=== PATIENT | female | born 1935 | race Caucasian/White ===

== ENCOUNTER 2020-07-16 10:11 | Inpatient (IN) | payer MEDICARE, OTHER ==
--- NOTE | 2020-07-14 19:00 | NUR ---
PATIENT ALERT BUT FORGETFUL, NO SOB NO CHEST PAIN. PATIENT IS HAVING ANXIETY, WORRIES ABOUT OH CATH NOT DRAINING, ETC. REORIENT PATIENT THAT OH CATH PATENT, AND ENCOURAGED TO TRY TO RELAX. PATIENT ALSO PULLED OUT IV LINE. WILL CONT TO MONITOR.
[~2020-07-16] VITALS: Ht 162.6 cm; Wt 68.0 kg
[2020-07-16 11:07] LABS: *BILIRUBIN,URIN NEGATIVE (NEGATIVE); *CLARITY,URINE CLEAR (CLEAR); *COLOR,URINE YELLOW (YELLOW); *KETONES,URINE NEGATIVE (NEGATIVE); *UROBILINOGEN,URINE 0.2 E.U./dl (NORMAL); LEUKOCYTE ESTERASE ,URINE NEGATIVE (NEGATIVE); NITRITE, URINE NEGATIVE (NEGATIVE); UGLUCOSE NEGATIVE (NEGATIVE)
[2020-07-16 11:21] LABS: BILIRUBIN,DIRECT 0.5 mg/dL (0.0-0.2); BILIRUBIN,TOTAL 3.8 mg/dL (0.2-1.0); CREATININE 1.3 mg/dL (0.6-1.3); TOTAL PROTEIN, SERUM 6.1 g/dL (6.4-8.2)
[2020-07-16 11:36] LABS: *BLOOD, URINE TRACE (NEGATIVE)
[2020-07-16 11:42] LABS: BASOPHILS % (AUTO) 0.5 % (0.0-2.0); EOSINOPHILS # (AUTO) 0.1 K/uL (0.0-0.7); EOSINOPHILS % (AUTO) 0.7 % (0.0-7.0); HEMATOCRIT 37.4 % (31.2-41.9); HEMOGLOBIN 13.8 g/dL (10.9-14.3); LYMPHOCYTES # (AUTO) 0.9 K/uL (20.0-40.0); LYMPHOCYTES % (AUTO) 10.3 % (20.5-51.5); MEAN CORPUSCULAR HEMOGLOBIN 30.4 uug (24.7-32.8); MEAN CORPUSCULAR HGB CONC 37 g/dL (32.3-35.6); MEAN CORPUSCULAR VOLUME 82.5 fL (75.5-95.3); MONOCYTES # (AUTO) 0.6 K/uL (2.0-10.0); MONOCYTES % (AUTO) 6.9 % (0.0-11.0); NEUTROPHILS # (AUTO) 6.8 K/uL (1.8-8.9); NEUTROPHILS % (AUTO) 81.6 % (38.5-71.5); PLATELET COUNT (AUTO) 286 K/uL (179-408); POTASSIUM 2.8 mmol/L (3.5-5.1); RED BLOOD CELL COUNT(AUTO) 4.54 MIL/uL (3.63-4.92); WHITE BLOOD COUNT (AUTO) 8.3 K/uL (3.8-11.8)
[2020-07-16] MEDS ORDERED: IV NORMAL SALINE 1000 ML BAG IV ONE (11:45)
--- NOTE | 2020-07-16 12:28 | NUR ---
Luz Marina Murphy at the bedside for admission.
[2020-07-16] MEDS ORDERED: POTASSIUM CHLORIDE 50 ML IV SCH (12:30)
[2020-07-16] MEDS ORDERED: POTASSIUM CHLORIDE 20 MEQ TAB.PRT.SR PO ONE (12:30)
[2020-07-16] MEDS ORDERED: ASPIRIN 325 MG TABLET PO ONE (12:30)
--- NOTE | 2020-07-16 12:32 | NUR ---
PT UNABLE TO REMEMBER MEDICATIONS AND DOSAGES.
[2020-07-16] MEDS ORDERED: ASPIRIN 325 MG TABLET ONE (12:34)
[2020-07-16] MEDS ORDERED: POTASSIUM CHLORIDE 20 MEQ TAB.PRT.SR ONE (12:42)
[2020-07-16] MEDS ORDERED: POTASSIUM CHLORIDE 50 ML ONE (12:42)
[2020-07-16] MEDS ORDERED: MAGNESIUM HYDROXIDE 30 ML LIQUID UDC PO PRN (13:30)
[2020-07-16] MEDS ORDERED: PANT40TA49 PO (13:34)
[2020-07-16] MEDS ORDERED: AMLO2.5T4 PO (13:34)
[2020-07-16] MEDS ORDERED: LEVO50TA8 PO (13:34)
[2020-07-16] MEDS ORDERED: ATOR20TA PO (13:34)
[2020-07-16] MEDS ORDERED: METO50TA16 PO (13:34)
[2020-07-16] MEDS: ENOXAPARIN SODIUM 30 MG/0.3 ML DISP.SYRIN SQ SCH (14:33)
[2020-07-16] MEDS ORDERED: ONDANSETRON 4 MG/2 ML VIAL ONE (14:33)
[2020-07-16] MEDS ORDERED: ENOXAPARIN SODIUM 30 MG/0.3 ML DISP.SYRIN ONE (14:33)
[2020-07-16] MEDS: ONDANSETRON 4 MG/2 ML VIAL IV PRN (14:36)
--- NOTE | 2020-07-16 15:24 | NUR ---
Patient is resting comfortably in bed with eyes closed, NAD noted.
[2020-07-16 15:50] LABS: BACTERIA,URINE NONE SEEN /HPF (NONE SEEN); SQUAMOUS EPITHELIAL CELL,UR FEW /HPF (NONE SEEN); WBC,URINE 0-3 /HPF (0-3)
[2020-07-16] MEDS ORDERED: METO-357 PO (16:32)
[2020-07-16] MEDS ORDERED: KETO15CR2 TP (16:32)
[2020-07-16] MEDS: ACETAMINOPHEN 325 MG TABLET PO PRN (16:50)
[2020-07-16] MEDS ORDERED: ACETAMINOPHEN 325 MG TABLET ONE (16:51)
[2020-07-16 17:53] LABS: CREATININE 1.2 mg/dL (0.6-1.3); POTASSIUM 3.1 mmol/L (3.5-5.1)
--- NOTE | 2020-07-16 18:28 | NUR ---
Reposition for comfort, denies nausea.
--- NOTE | 2020-07-16 19:57 | NUR ---
PT AWAITING FOR MED SURG BED. NO DISTRESS NOTED
[2020-07-16] MEDS ORDERED: IV NS 1000 ML 1,000 ML IV ONE (20:00)
--- NOTE | 2020-07-16 20:30 | NUR ---
SBAR REPORT TO NINOSKA VOGEL. PT RECEIVING 1 L 0.9 NS.
--- NOTE | 2020-07-16 21:00 | NUR ---
RECEIVED PATIENT, IN NO ACUTE DISTRESS. ALERT AND VERBALLY RESPONSIVE. CAN MAKE NEEDS KNOWN. NO COMPLAINTS OF PAIN. ORIENTED PATIENT TO ROOM, BED, AND UNIT.
[2020-07-16 21:20] VITALS: BP 142/56
--- NOTE | 2020-07-16 22:30 | NUR ---
BODY CHECK DONE, PATIENT'S SKIN INTACT.
[2020-07-16 23:56] VITALS: BP 147/60
[2020-07-17 04:05] VITALS: BP 171/83
--- NOTE | 2020-07-17 04:30 | NUR ---
PATIENT OBSERVED TO BE ANXIOUS. VERBALIZED SHE CAN'T BREATH. BUT UPON OBSERVATION, PATIENT'S RESPIRATIONS ARE EVEN AND UNLABORED WITH 19 BREATHS PER MINUTE, O2 SATURATION IS 97% ON ROOM AIR. PATIENT IS ON TELEMETRY AND READING IS SINUS RHYTHM. BP WAS ELEVATED AT 171/83. PROVIDED PATIENT REASSURANCE, DIM AND QUIET ENVIRONMENT.
[2020-07-17 04:50] VITALS: BP 156/79
--- NOTE | 2020-07-17 04:50 | NUR ---
RECHECKED PATIENT'S BLOOD PRESSURE AND IS 156/79, HEART RATE 98. PATIENT IS LESS ANXIOUS AND DOZING INTERMITTENTLY.
[2020-07-17] MEDS: PANTOPRAZOLE SODIUM 40 MG TABLET.DR PO SCH (06:04)
[2020-07-17 06:31] LABS: BASOPHILS % (AUTO) 0.4 % (0.0-2.0); EOSINOPHILS # (AUTO) 0.1 K/uL (0.0-0.7); EOSINOPHILS % (AUTO) 1.1 % (0.0-7.0); HEMATOCRIT 35.1 % (31.2-41.9); LYMPHOCYTES # (AUTO) 0.6 K/uL (20.0-40.0); LYMPHOCYTES % (AUTO) 7.8 % (20.5-51.5); MEAN CORPUSCULAR HEMOGLOBIN 30.8 uug (24.7-32.8); MEAN CORPUSCULAR HGB CONC 37 g/dL (32.3-35.6); MEAN CORPUSCULAR VOLUME 83.2 fL (75.5-95.3); MONOCYTES # (AUTO) 0.6 K/uL (2.0-10.0); MONOCYTES % (AUTO) 7.6 % (0.0-11.0); NEUTROPHILS # (AUTO) 6.3 K/uL (1.8-8.9); NEUTROPHILS % (AUTO) 83.1 % (38.5-71.5); PLATELET COUNT (AUTO) 254 K/uL (179-408); RED BLOOD CELL COUNT(AUTO) 4.23 MIL/uL (3.63-4.92); WHITE BLOOD COUNT (AUTO) 7.5 K/uL (3.8-11.8)
[2020-07-17 06:52] LABS: BILIRUBIN,TOTAL 2.5 mg/dL (0.2-1.0); CREATININE 1.2 mg/dL (0.6-1.3); MAGNESIUM 1.9 mg/dL (1.8-2.4); PHOSPHOROUS 2.5 mg/dL (2.5-4.9); TOTAL PROTEIN, SERUM 5.5 g/dL (6.4-8.2)
[2020-07-17 07:27] LABS: POTASSIUM 2.8 mmol/L (3.5-5.1)
[2020-07-17] MEDS: ACETAMINOPHEN 325 MG TABLET PO PRN (08:37)
[2020-07-17] MEDS: LEVOTHYROXINE SODIUM 50 MCG TABLET PO SCH (08:39)
[2020-07-17] MEDS: METOPROLOL SUCCINATE XL 50 MG TAB.SR.24H PO SCH (08:40)
[2020-07-17] MEDS ORDERED: PANTOPRAZOLE SODIUM 40 MG TABLET.DR PO SCH (09:00)
[2020-07-17] MEDS ORDERED: AMLODIPINE 2.5 MG TABLET PO SCH (09:00)
[2020-07-17] MEDS ORDERED: POTASSIUM CHLORIDE 20 MEQ TAB.PRT.SR PO ONE (09:45)
[2020-07-17] MEDS: ENOXAPARIN SODIUM 30 MG/0.3 ML DISP.SYRIN SQ SCH (09:57)
[2020-07-17 11:58] VITALS: BP 170/76
[2020-07-17] MEDS: MIRALAX 17 GM POWD.PACK PO SCH (12:13)
--- NOTE | 2020-07-17 14:25 | NUR ---
DR POST MADE AWARE ABOUT THE CONSULT
[2020-07-17 16:00] VITALS: BP 134/60
[2020-07-17] MEDS: POTASSIUM CHLORIDE 50 ML IV SCH ×2 (17:51→19:28)
--- NOTE | 2020-07-17 18:28 | NUR ---
Patient needs new intravenous site as she removed own intravenous site. Patient refuses linen change, meal tray bean picker at this time. Barrie Ayala RN
[2020-07-17] MEDS: IV NS 1000 ML 1,000 ML IV PRN (19:00)
--- NOTE | 2020-07-17 19:30 | NUR ---
Handoff with JASPREET Crawford. Barrie Ayala RN
[2020-07-17 20:00] VITALS: BP 116/80
[2020-07-17] MEDS: ATORVASTATIN 20 MG TABLET PO SCH (21:20)
[2020-07-17] MEDS: MIRTAZAPINE 15 MG TABLET PO SCH (21:21)
[2020-07-17] MEDS: CLONAZEPAM 0.5 MG TABLET PO SCH (21:41)
--- NOTE | 2020-07-17 21:48 | NUR ---
PATIENT SEEN BY DR POST DUE TO SEVERE ANXIETY, AND WANTING TO HURT HERSELF. HAS NEW ORDER.
--- NOTE | 2020-07-17 21:55 | NUR ---
PATIENT IS HARD STICK, AND MULTIPLE MEDICATIONS NEEDS TO BE GIVEN. [facility] TECHNICIAN NOTIFY WITH ORDER MIDLINE INSERTION.
[2020-07-18] VITALS: BP 197/91
[2020-07-18] MEDS: IV NS 1000 ML 1,000 ML IV PRN ×3 (02:46→17:19)
--- NOTE | 2020-07-18 02:47 | NUR ---
NS IV FLUID BAR CODE UN SCANNABLE, ENTER MANUALLY.
[2020-07-18 04:00] VITALS: BP 192/82
[2020-07-18] MEDS: ACETAMINOPHEN 325 MG TABLET PO PRN (04:10)
--- NOTE | 2020-07-18 04:27 | NUR ---
PATIENT HAS ELEVATED BP OF 197/91 HR 80, 192/82 HR 86, NOTIFY [facility] FREIGHT RATE CLERK WITH ORDER CLONIDINE 0.1MG PO Q8 HRS PRN FOR SBP>160.
[2020-07-18] MEDS: PANTOPRAZOLE SODIUM 40 MG TABLET.DR PO SCH (06:00)
[2020-07-18] MEDS: CLONIDINE HCL 0.1 MG TABLET PO PRN (06:00)
[2020-07-18 07:47] LABS: CREATININE 0.9 mg/dL (0.6-1.3); MAGNESIUM 2.1 mg/dL (1.8-2.4); PHOSPHOROUS 2.1 mg/dL (2.5-4.9); POTASSIUM 3.3 mmol/L (3.5-5.1); URIC ACID 3.3 mg/dL (2.6-6.0)
[2020-07-18 07:52] LABS: THYROID STIMULATING HORMONE 1.45 mIU/mL (0.358-3.740)
[2020-07-18 08:00] VITALS: BP 156/63
[2020-07-18] MEDS ORDERED: POTASSIUM CHLORIDE 20 MEQ POWDER PACKET PO ONE (08:15)
[2020-07-18 08:18] LABS: BASOPHILS # (AUTO) 0.1 K/uL (0.0-8.0); BASOPHILS % (AUTO) 0.6 % (0.0-2.0); EOSINOPHILS # (AUTO) 0.2 K/uL (0.0-0.7); EOSINOPHILS % (AUTO) 1.5 % (0.0-7.0); HEMATOCRIT 37.8 % (31.2-41.9); HEMOGLOBIN 13.4 g/dL (10.9-14.3); LYMPHOCYTES # (AUTO) 1.1 K/uL (20.0-40.0); LYMPHOCYTES % (AUTO) 7.8 % (20.5-51.5); MEAN CORPUSCULAR HEMOGLOBIN 30.5 uug (24.7-32.8); MEAN CORPUSCULAR HGB CONC 36 g/dL (32.3-35.6); MEAN CORPUSCULAR VOLUME 85.9 fL (75.5-95.3); MONOCYTES % (AUTO) 7.1 % (0.0-11.0); PLATELET COUNT (AUTO) 293 K/uL (179-408); WHITE BLOOD COUNT (AUTO) 14.5 K/uL (3.8-11.8)
[2020-07-18] MEDS: AMLODIPINE 2.5 MG TABLET PO SCH (08:36)
[2020-07-18] MEDS: CLONAZEPAM 0.5 MG TABLET PO SCH ×2 (08:36→16:16)
[2020-07-18] MEDS: MIRALAX 17 GM POWD.PACK PO SCH (08:36)
[2020-07-18] MEDS: METOPROLOL SUCCINATE XL 50 MG TAB.SR.24H PO SCH (08:36)
[2020-07-18] MEDS: LEVOTHYROXINE SODIUM 50 MCG TABLET PO SCH (08:36)
[2020-07-18] MEDS: ENOXAPARIN SODIUM 30 MG/0.3 ML DISP.SYRIN SQ SCH (08:37)
[2020-07-18] MEDS ORDERED: CLONAZEPAM 0.5 MG TABLET PO SCH (09:00)
[2020-07-18] MEDS ORDERED: POTASSIUM PHOSPHATE MM 7.5 MMOL in IV NORMAL SALINE 97.5 ML IV ONE (10:00)
[2020-07-18 11:00] VITALS: BP 152/63
[2020-07-18] MEDS: CLONIDINE-TTS 1 PATCH TD SCH (12:46)
[2020-07-18 15:21] VITALS: BP 136/66
--- NOTE | 2020-07-18 20:00 | NUR ---
Received pt resting in bed. Axox3, no acute distress noted. No s/s of SOB, RA saturating @ 95-96%. Denies any pain at the moment. ALEX midline intact running 75cc/hr NS. Reese draining yellow, no sediments noted. Safety measures in place. Bed alarm on. Will continue with plan of care.
[2020-07-18 20:30] VITALS: BP 158/74
[2020-07-18] MEDS: ATORVASTATIN 20 MG TABLET PO SCH (21:54)
[2020-07-18] MEDS: MIRTAZAPINE 15 MG TABLET PO SCH (21:54)
[2020-07-18] MEDS: ONDANSETRON 4 MG/2 ML VIAL IV PRN (23:20)
--- NOTE | 2020-07-18 23:30 | NUR ---
All due medication administered and tolerated well, compliant. Noted clear emesis on the floor twice. Pt stated feeling nauseous, administered zofran. Will monitor for effectiveness.
[2020-07-19] MEDS: PANTOPRAZOLE SODIUM 40 MG TABLET.DR PO SCH (06:02)
[2020-07-19] MEDS: IV NS 1000 ML 1,000 ML IV PRN ×2 (06:49→21:37)
[2020-07-19 07:14] LABS: BASOPHILS # (AUTO) 0.1 K/uL (0.0-8.0); BASOPHILS % (AUTO) 0.7 % (0.0-2.0); EOSINOPHILS # (AUTO) 0.1 K/uL (0.0-0.7); EOSINOPHILS % (AUTO) 1.7 % (0.0-7.0); HEMATOCRIT 34.5 % (31.2-41.9); HEMOGLOBIN 12.3 g/dL (10.9-14.3); LYMPHOCYTES # (AUTO) 1.1 K/uL (20.0-40.0); LYMPHOCYTES % (AUTO) 12.7 % (20.5-51.5); MEAN CORPUSCULAR HEMOGLOBIN 31.1 uug (24.7-32.8); MEAN CORPUSCULAR HGB CONC 36 g/dL (32.3-35.6); MEAN CORPUSCULAR VOLUME 87.1 fL (75.5-95.3); MONOCYTES # (AUTO) 0.6 K/uL (2.0-10.0); MONOCYTES % (AUTO) 6.5 % (0.0-11.0); NEUTROPHILS # (AUTO) 6.8 K/uL (1.8-8.9); NEUTROPHILS % (AUTO) 78.4 % (38.5-71.5); PLATELET COUNT (AUTO) 266 K/uL (179-408); RED BLOOD CELL COUNT(AUTO) 3.96 MIL/uL (3.63-4.92); WHITE BLOOD COUNT (AUTO) 8.7 K/uL (3.8-11.8)
[2020-07-19 07:22] LABS: BILIRUBIN,TOTAL 1.2 mg/dL (0.2-1.0); MAGNESIUM 1.9 mg/dL (1.8-2.4); PHOSPHOROUS 2.8 mg/dL (2.5-4.9); POTASSIUM 3.6 mmol/L (3.5-5.1); TOTAL PROTEIN, SERUM 5.6 g/dL (6.4-8.2)
[2020-07-19] MEDS: MIRALAX 17 GM POWD.PACK PO SCH (08:14)
[2020-07-19] MEDS: ENOXAPARIN SODIUM 30 MG/0.3 ML DISP.SYRIN SQ SCH (08:15)
[2020-07-19] MEDS: METOPROLOL SUCCINATE XL 50 MG TAB.SR.24H PO SCH ×2 (08:15→21:37)
[2020-07-19] MEDS: AMLODIPINE 2.5 MG TABLET PO SCH (08:15)
[2020-07-19] MEDS: CLONAZEPAM 0.5 MG TABLET PO SCH ×2 (08:15→16:48)
[2020-07-19] MEDS: LEVOTHYROXINE SODIUM 50 MCG TABLET PO SCH (08:15)
[2020-07-19 11:00] VITALS: BP 147/69
[2020-07-19 15:26] VITALS: BP 115/71
[2020-07-19 20:26] VITALS: BP 148/64
[2020-07-19] MEDS: ATORVASTATIN 20 MG TABLET PO SCH (21:36)
[2020-07-19] MEDS: MIRTAZAPINE 15 MG TABLET PO SCH (21:37)
--- NOTE | 2020-07-19 22:00 | NUR ---
pt is confused, does not understand why she is in the hospital. Expressed she does not want medical help. No acute distress noted. vss, No s/s of SOB. Denies any pain at the moment. ALEX midline intact running 75cc/hr NS. Reese draining yellow. All due medication administered and tolerated well. Snacks provided, all needs attended too promptly. Safety measures in place. Bed alarm on. Will continue with plan of care.
[2020-07-20 04:30] VITALS: BP 162/71
[2020-07-20] MEDS: PANTOPRAZOLE SODIUM 40 MG TABLET.DR PO SCH (06:04)
[2020-07-20 06:50] VITALS: BP 167/77
[2020-07-20] MEDS: CLONIDINE HCL 0.1 MG TABLET PO PRN (06:57)
--- NOTE | 2020-07-20 06:57 | NUR ---
Elevated BP 162/ 71, rechecked 167/77 administered clonidine PRN 0.1Mg
[2020-07-20] MEDS: CLONAZEPAM 0.5 MG TABLET PO SCH ×2 (08:12→17:14)
[2020-07-20] MEDS: MIRALAX 17 GM POWD.PACK PO SCH (08:12)
[2020-07-20] MEDS: LEVOTHYROXINE SODIUM 50 MCG TABLET PO SCH (08:12)
[2020-07-20] MEDS: AMLODIPINE 2.5 MG TABLET PO SCH (08:12)
[2020-07-20] MEDS: METOPROLOL SUCCINATE XL 50 MG TAB.SR.24H PO SCH ×2 (08:12→20:12)
[2020-07-20] MEDS: ENOXAPARIN SODIUM 30 MG/0.3 ML DISP.SYRIN SQ SCH (08:18)
[2020-07-20 11:28] VITALS: BP 114/72
[2020-07-20] MEDS: IV NS 1000 ML 1,000 ML IV PRN (15:33)
[2020-07-20 16:00] VITALS: BP 122/63
[2020-07-20] MEDS: MIRTAZAPINE 15 MG TABLET PO SCH (20:11)
[2020-07-20] MEDS: ATORVASTATIN 20 MG TABLET PO SCH (20:12)
[2020-07-20 20:51] VITALS: BP 122/65
--- NOTE | 2020-07-20 22:50 | NUR ---
Received pt sleeping. Aroused easily to verbal stimuli. Alert and oriented x2. No acute distress noted. Denies pain/ discomfort. Pt has left upper arm midline running NS 75cc/ hr. All due meds given as ordered. Reese catheter draining well with yellow colored urine. Safety measures maintained. Call light and personal items within reach. Will continue to monitor.
[2020-07-21] MEDS: IV NS 1000 ML 1,000 ML IV PRN (05:05)
[2020-07-21] MEDS: CLONIDINE HCL 0.1 MG TABLET PO PRN (05:07)
[2020-07-21 05:27] VITALS: BP 165/74
[2020-07-21] MEDS: PANTOPRAZOLE SODIUM 40 MG TABLET.DR PO SCH (06:03)
[2020-07-21] MEDS: ASPIRIN EC 81 MG TABLET.DR PO SCH (08:24)
[2020-07-21] MEDS: LEVOTHYROXINE SODIUM 50 MCG TABLET PO SCH (08:24)
[2020-07-21] MEDS: AMLODIPINE 2.5 MG TABLET PO SCH (08:25)
[2020-07-21] MEDS: MIRALAX 17 GM POWD.PACK PO SCH (08:25)
[2020-07-21] MEDS: CLONAZEPAM 0.5 MG TABLET PO SCH ×2 (08:25→18:02)
[2020-07-21] MEDS: METOPROLOL SUCCINATE XL 50 MG TAB.SR.24H PO SCH ×2 (08:26→21:23)
[2020-07-21] MEDS: ENOXAPARIN SODIUM 30 MG/0.3 ML DISP.SYRIN SQ SCH (08:28)
[2020-07-21 09:29] LABS: BASOPHILS % (AUTO) 0.9 % (0.0-2.0); EOSINOPHILS # (AUTO) 0.2 K/uL (0.0-0.7); EOSINOPHILS % (AUTO) 3.9 % (0.0-7.0); HEMATOCRIT 34.7 % (31.2-41.9); HEMOGLOBIN 12.3 g/dL (10.9-14.3); LYMPHOCYTES # (AUTO) 0.8 K/uL (20.0-40.0); LYMPHOCYTES % (AUTO) 14.4 % (20.5-51.5); MEAN CORPUSCULAR HEMOGLOBIN 30.7 uug (24.7-32.8); MEAN CORPUSCULAR HGB CONC 36 g/dL (32.3-35.6); MEAN CORPUSCULAR VOLUME 86.4 fL (75.5-95.3); MONOCYTES # (AUTO) 0.5 K/uL (2.0-10.0); MONOCYTES % (AUTO) 9.3 % (0.0-11.0); NEUTROPHILS # (AUTO) 3.9 K/uL (1.8-8.9); NEUTROPHILS % (AUTO) 71.5 % (38.5-71.5); PLATELET COUNT (AUTO) 255 K/uL (179-408); RED BLOOD CELL COUNT(AUTO) 4.01 MIL/uL (3.63-4.92); WHITE BLOOD COUNT (AUTO) 5.5 K/uL (3.8-11.8)
[2020-07-21 09:50] LABS: CREATININE 0.9 mg/dL (0.6-1.3); MAGNESIUM 1.7 mg/dL (1.8-2.4); PHOSPHOROUS 3.1 mg/dL (2.5-4.9); POTASSIUM 3.5 mmol/L (3.5-5.1)
[2020-07-21 11:47] VITALS: BP 137/55
[2020-07-21] MEDS ORDERED: MAGNESIUM SULFATE/D5W 100 ML IV SCH (12:30)
[2020-07-21 16:26] VITALS: BP 112/54
[2020-07-21 20:00] VITALS: BP_SYST 119; BP_SYST 122; BP_DIAS 53; BP_DIAS 83
[2020-07-21 21:00] VITALS: BP 119/83
[2020-07-21] MEDS: ATORVASTATIN 20 MG TABLET PO SCH (21:23)
[2020-07-21] MEDS: MIRTAZAPINE 15 MG TABLET PO SCH (21:23)
--- NOTE | 2020-07-21 21:30 | NUR ---
Received pt resting in bed. Axox3, confused needs reorientation. States she wants to go home. No acute distress noted. No s/s of SOB, RA saturating @ 98%. Denies any pain at the moment. ALEX midline intact, flushed. Reese intact draining well. Safety measures in place. Bed alarm on. Will continue with plan of care.
[2020-07-22 04:00] VITALS: BP 148/72
[2020-07-22] MEDS: PANTOPRAZOLE SODIUM 40 MG TABLET.DR PO SCH (06:15)
[2020-07-22] MEDS: AMLODIPINE 2.5 MG TABLET PO SCH (08:14)
[2020-07-22] MEDS: MIRALAX 17 GM POWD.PACK PO SCH (08:15)
[2020-07-22] MEDS: ENOXAPARIN SODIUM 30 MG/0.3 ML DISP.SYRIN SQ SCH (08:17)
[2020-07-22] MEDS: CLONAZEPAM 0.5 MG TABLET PO SCH ×2 (08:18→18:21)
[2020-07-22] MEDS: METOPROLOL SUCCINATE XL 50 MG TAB.SR.24H PO SCH ×2 (08:18→20:34)
[2020-07-22] MEDS: LEVOTHYROXINE SODIUM 50 MCG TABLET PO SCH (08:18)
[2020-07-22] MEDS: ASPIRIN EC 81 MG TABLET.DR PO SCH (08:22)
[2020-07-22 11:06] VITALS: BP 134/63
[2020-07-22 15:40] VITALS: BP 148/64
--- NOTE | 2020-07-22 19:30 | NUR ---
Received patient awake in bed. Denies pain at this time. Is requesting a sandwich and one was provided to her. On RA sating at 97%. No respiratory distress noted. No other issues or concerns at this time.
[2020-07-22 20:32] VITALS: BP 126/60
[2020-07-22] MEDS: MIRTAZAPINE 15 MG TABLET PO SCH (20:33)
[2020-07-22] MEDS: ATORVASTATIN 20 MG TABLET PO SCH (20:33)
[2020-07-23 05:34] VITALS: BP 149/74
[2020-07-23] MEDS: PANTOPRAZOLE SODIUM 40 MG TABLET.DR PO SCH (06:00)
--- NOTE | 2020-07-23 06:18 | NUR ---
Pt slept throughout the night with no complaints. Denies pain or SOB. Pt is on RA sating at 96%. No other issues or concerns at this time. Will endorse to day shift.
[2020-07-23 07:44] LABS: BASOPHILS # (AUTO) 0.1 K/uL (0.0-8.0); BASOPHILS % (AUTO) 0.9 % (0.0-2.0); EOSINOPHILS # (AUTO) 0.2 K/uL (0.0-0.7); EOSINOPHILS % (AUTO) 3.1 % (0.0-7.0); HEMATOCRIT 36.3 % (31.2-41.9); HEMOGLOBIN 12.9 g/dL (10.9-14.3); LYMPHOCYTES # (AUTO) 1.2 K/uL (20.0-40.0); LYMPHOCYTES % (AUTO) 20.5 % (20.5-51.5); MEAN CORPUSCULAR HEMOGLOBIN 30.6 uug (24.7-32.8); MEAN CORPUSCULAR HGB CONC 36 g/dL (32.3-35.6); MEAN CORPUSCULAR VOLUME 86.3 fL (75.5-95.3); MONOCYTES # (AUTO) 0.5 K/uL (2.0-10.0); MONOCYTES % (AUTO) 9.2 % (0.0-11.0); NEUTROPHILS # (AUTO) 3.9 K/uL (1.8-8.9); NEUTROPHILS % (AUTO) 66.3 % (38.5-71.5); PLATELET COUNT (AUTO) 318 K/uL (179-408); RED BLOOD CELL COUNT(AUTO) 4.21 MIL/uL (3.63-4.92); WHITE BLOOD COUNT (AUTO) 5.9 K/uL (3.8-11.8)
[2020-07-23 07:58] LABS: CREATININE 1.2 mg/dL (0.6-1.3); PHOSPHOROUS 3.6 mg/dL (2.5-4.9); POTASSIUM 3.6 mmol/L (3.5-5.1)
[2020-07-23] MEDS: CLONAZEPAM 0.5 MG TABLET PO SCH ×2 (09:25→17:41)
[2020-07-23] MEDS: LEVOTHYROXINE SODIUM 50 MCG TABLET PO SCH (09:26)
[2020-07-23] MEDS: ASPIRIN EC 81 MG TABLET.DR PO SCH (09:26)
[2020-07-23] MEDS: AMLODIPINE 2.5 MG TABLET PO SCH (09:26)
[2020-07-23] MEDS: MIRALAX 17 GM POWD.PACK PO SCH (09:26)
[2020-07-23] MEDS: METOPROLOL SUCCINATE XL 50 MG TAB.SR.24H PO SCH ×2 (09:26→20:58)
[2020-07-23] MEDS ORDERED: POTASSIUM CHLORIDE 20 MEQ TAB.PRT.SR PO ONE (09:45)
[2020-07-23 11:41] VITALS: BP 156/79
[2020-07-23 15:16] VITALS: BP 151/84
[2020-07-23] MEDS ORDERED: PANT40TA2 PO (17:01)
[2020-07-23] MEDS ORDERED: CLON0.5T4 PO (17:01)
[2020-07-23] MEDS ORDERED: CLON1PAT TD (17:01)
[2020-07-23] MEDS ORDERED: AMLO2.5T4 PO (17:01)
[2020-07-23] MEDS ORDERED: METO-357 PO (17:01)
[2020-07-23] MEDS ORDERED: MAGN400O6 PO (17:01)
[2020-07-23] MEDS ORDERED: CLON0.1T14 PO (17:01)
[2020-07-23] MEDS ORDERED: ACET325T53 PO (17:01)
[2020-07-23] MEDS ORDERED: MIRT15TA7 PO (17:01)
[2020-07-23] MEDS ORDERED: MULT-594 PO (17:01)
[2020-07-23] MEDS ORDERED: DOCU-141 PO (17:01)
[2020-07-23] MEDS ORDERED: ASPI-618 PO (17:01)
[2020-07-23] MEDS ORDERED: CLONIDINE HCL 0.1 MG TABLET PO ONE (17:15)
--- NOTE | 2020-07-23 19:56 | NUR ---
Received patient awake and in bed. Denies pain at this time. No SOB. Bed is locked and in lowest position. No other issues or concerns at this time.
[2020-07-23 20:32] VITALS: BP 120/61
[2020-07-23] MEDS: ATORVASTATIN 20 MG TABLET PO SCH (20:58)
[2020-07-23] MEDS: MIRTAZAPINE 15 MG TABLET PO SCH (20:58)
[2020-07-24 04:22] VITALS: BP 106/51
[2020-07-24] MEDS: PANTOPRAZOLE SODIUM 40 MG TABLET.DR PO SCH (06:01)
--- NOTE | 2020-07-24 06:11 | NUR ---
Pt slept throughout the night with no complaints. Denies pain or SOB. On RA sating at 95%. D/C ann. Ready for discharge today at [facility]. No other issues or concerns at this time. Will endorse to day shift.
--- NOTE | 2020-07-24 07:42 | NUR ---
Sleeping, appears comfortable. Due to void
[2020-07-24] MEDS: ASPIRIN EC 81 MG TABLET.DR PO SCH (09:15)
[2020-07-24] MEDS: LEVOTHYROXINE SODIUM 50 MCG TABLET PO SCH (09:21)
[2020-07-24] MEDS: CLONAZEPAM 0.5 MG TABLET PO SCH ×2 (09:21→17:49)
[2020-07-24] MEDS: AMLODIPINE 2.5 MG TABLET PO SCH (09:23)
[2020-07-24] MEDS: METOPROLOL SUCCINATE XL 50 MG TAB.SR.24H PO SCH ×2 (09:23→21:00)
[2020-07-24] MEDS: MIRALAX 17 GM POWD.PACK PO SCH (09:32)
[2020-07-24] MEDS: ACETAMINOPHEN 325 MG TABLET PO PRN (11:42)
--- NOTE | 2020-07-24 11:45 | NUR ---
Complained of back pain. Repositioned in bed. Tylenol po given
[2020-07-24 11:52] VITALS: BP 181/92
[2020-07-24 15:47] VITALS: BP 98/46
--- NOTE | 2020-07-24 18:00 | NUR ---
With discharge order to SNF but still waiting for authorization.
--- NOTE | 2020-07-24 19:30 | NUR ---
Pt received in bed, resting. Denies pain or SOB at this time. No acute distress noted. Call light is within reach. No other issues or concerns at this time.
[2020-07-24 20:30] VITALS: BP 104/51
[2020-07-24] MEDS: MIRTAZAPINE 15 MG TABLET PO SCH (21:04)
[2020-07-24] MEDS: ATORVASTATIN 20 MG TABLET PO SCH (21:04)
[2020-07-25 04:00] VITALS: BP 120/53
[2020-07-25] MEDS: PANTOPRAZOLE SODIUM 40 MG TABLET.DR PO SCH (06:49)
[2020-07-25] MEDS: ACETAMINOPHEN 325 MG TABLET PO PRN ×2 (07:12→13:31)
--- NOTE | 2020-07-25 08:00 | NUR ---
Pt slept throughout the night. Denies pain or SOB. Is slightly anxious about not seeing her daughter recently. Was calmed down and educated on deep breathing. Was reinstructed how to make phone calls from room. Otherwise pleasant. No other issues or concerns at this time. Will endorse to day shift.
[2020-07-25] MEDS: ASPIRIN EC 81 MG TABLET.DR PO SCH (08:59)
[2020-07-25] MEDS: LEVOTHYROXINE SODIUM 50 MCG TABLET PO SCH (09:00)
[2020-07-25] MEDS: MIRALAX 17 GM POWD.PACK PO SCH (09:00)
[2020-07-25] MEDS: METOPROLOL SUCCINATE XL 50 MG TAB.SR.24H PO SCH ×2 (09:00→21:00)
[2020-07-25] MEDS: CLONAZEPAM 0.5 MG TABLET PO SCH ×2 (09:01→18:17)
[2020-07-25] MEDS: AMLODIPINE 2.5 MG TABLET PO SCH (09:05)
[2020-07-25 12:45] VITALS: BP 101/59
[2020-07-25] MEDS: CLONIDINE-TTS 1 PATCH TD SCH (13:00)
--- NOTE | 2020-07-25 13:35 | NUR ---
Patient complained of back pain, repositioned patient. Tylenol PO given, with relief.
[2020-07-25] MEDS ORDERED: CALCIUM CARBONATE 500 MG TAB.CHEW PO PRN (13:45)
--- NOTE | 2020-07-25 15:10 | NUR ---
Patient complained of heartburn, with orders, tums given, with relief.
[2020-07-25 16:29] VITALS: BP 99/52
--- NOTE | 2020-07-25 18:45 | NUR ---
Patient resting in bed. Refusing to eat dinner. Safety precautions in place.
--- NOTE | 2020-07-25 18:50 | NUR ---
Patient refusing to eat dinner, resting comfortable. Safety precautions in place.
--- NOTE | 2020-07-25 19:45 | NUR ---
Received patient in bed Asleep.Denies heartburn.No s/s of distress noted.On RA saturating 94%.Midline on left upper arm in place.Due meds given.No a/r noted.Continue safety measures.will continue to monitor.
[2020-07-25 20:37] VITALS: BP 103/50
[2020-07-25] MEDS: MIRTAZAPINE 15 MG TABLET PO SCH (22:07)
[2020-07-25] MEDS: ATORVASTATIN 20 MG TABLET PO SCH (22:07)
[2020-07-26 04:10] VITALS: BP 115/59
[2020-07-26] MEDS: PANTOPRAZOLE SODIUM 40 MG TABLET.DR PO SCH (06:01)
[2020-07-26] MEDS: LEVOTHYROXINE SODIUM 50 MCG TABLET PO SCH (08:31)
[2020-07-26] MEDS: ASPIRIN EC 81 MG TABLET.DR PO SCH (08:31)
[2020-07-26] MEDS: METOPROLOL SUCCINATE XL 50 MG TAB.SR.24H PO SCH (08:31)
[2020-07-26] MEDS: AMLODIPINE 2.5 MG TABLET PO SCH (08:32)
[2020-07-26] MEDS: MIRALAX 17 GM POWD.PACK PO SCH (08:32)
[2020-07-26] MEDS: CLONAZEPAM 0.5 MG TABLET PO SCH ×2 (08:32→17:29)
--- NOTE | 2020-07-26 11:08 | NUR ---
SW Insurance Contact: This SW contacted [facility], requesting to speak to Ones[employer] and another case picker Maxine was covering for Onesimo due to her being on vacation. [employer] farmworker Maxine stated as of now they are still trying to find pt a placement and will contact once placement is found.
[2020-07-26 11:10] VITALS: BP 140/62
--- NOTE | 2020-07-26 12:59 | NUR ---
SW Coordination of Care: This SW sent [facility] hanley ([phone]) for possible placement. This SW sent H & P notes, progress notes, and medication list.
[2020-07-26 15:22] VITALS: BP 118/56
== END 2020-07-26 23:50 | DRG 640 ==
LOC: ER 10:11 → TELE3 20:17 → MEDSURG3 07-18 08:55
PROVIDERS: ADMIT Nurse Practitioner Acute Care; ATTEND Registered Nurse
DX: E87.1 Hypo-osmolality and hyponatremia (principal); I50.33 Acute on chronic diastolic (congestive) heart failure; N17.0 Acute kidney failure with tubular necrosis; D68.69 Other thrombophilia; E44.0 Moderate protein-calorie malnutrition; R45.851 Suicidal ideations; E87.6 Hypokalemia; E03.9 Hypothyroidism, unspecified; E78.5 Hyperlipidemia, unspecified; E86.1 Hypovolemia; F03.90 Unspecified dementia, unspecified severity, without behavioral disturbance, psychotic disturbance, mood disturbance, and anxiety; F32.9 Major depressive disorder, single episode, unspecified; F41.9 Anxiety disorder, unspecified; I11.0 Hypertensive heart disease with heart failure; K21.9 Gastro-esophageal reflux disease without esophagitis; R63.1 Polydipsia; R53.1 Weakness; E88.09 Other disorders of plasma-protein metabolism, not elsewhere classified; I05.0 Rheumatic mitral stenosis; Z68.25 Body mass index [BMI] 25.0-25.9, adult; F01.50 Vascular dementia, unspecified severity, without behavioral disturbance, psychotic disturbance, mood disturbance, and anxiety; Z86.73 Personal history of transient ischemic attack (TIA), and cerebral infarction without residual deficits; E80.6 Other disorders of bilirubin metabolism; R33.9 Retention of urine, unspecified
CPT/HCPCS: 36415; 51702; 70030-TC; 70450; 71045; 83605; 83735; 84100; 84443; 84550; 85025; 93005; 93307; A4663; G0378; J1650; J2405; J3475; J3480; J3490; J7030